=== PATIENT | female | born 1980 | race African-American/Black ===

== ENCOUNTER 2017-11-29 18:12 | Emergency (ER) | payer BC, OTHER ==
[2017-11-29] MEDS ORDERED: HYDROCODONE/ACETAMINOPHEN 5-325 MG TABLET PO ONE (19:00)
--- NOTE | 2017-11-29 19:02 | ER Document Report ---
ED Medical Screen (RME) - General Chief Complaint: Neck Pain >24hrs old Stated Complaint: HEAD PAIN Time Seen by Provider: 11/29/17 18:59 Mode of Arrival: Ambulatory Information source: Patient TRAVEL OUTSIDE OF THE [place] IN LAST 30 DAYS: No - HPI Patient complains to provider of: BARBOSA; neck stiffness Onset: Other - Pt. with c/o severe BARBOSA and neck stiffness for the past 3 days. - Related Data Allergies/Adverse Reactions: No Known Allergies Allergy (Verified 11/29/17 18:51) Past Medical History - Social History Chew tobacco use (# tins/day): No Frequency of alcohol use: None Drug Abuse: None Renal/ Medical History: Denies: Hx Peritoneal Dialysis Physical Exam - Vital signs Vitals: Temp Pulse Resp BP Pulse Ox 98.6 F 93 18 135/87 H 100 11/29/17 18:51 11/29/17 18:51 11/29/17 18:51 11/29/17 18:51 11/29/17 18:51 Course - Vital Signs Vital signs: Temp Pulse Resp BP Pulse Ox 98.6 F 93 18 135/87 H 100 11/29/17 18:51 11/29/17 18:51 11/29/17 18:51 11/29/17 18:51 11/29/17 18:51
[2017-11-29 20:09] LABS: APPEARANCE,URINE CLEAR; BILIRUBIN,URINE NEGATIVE (NEGATIVE); COLOR,URINE STRAW; GLUCOSE, URINE NEGATIVE (NEGATIVE); KETONES,URINE NEGATIVE (NEGATIVE); LEUKOCYTE ESTERASE,URINE NEGATIVE (NEGATIVE); NITRITE,URINE NEGATIVE (NEGATIVE); PROTEIN,URINE NEGATIVE (NEGATIVE); UROBILINOGEN,URINE NEGATIVE mg/dL (<2.0)
[2017-11-29 20:12] LABS: ABSOLUTE BASOPHILS # (AUTO) 0.1 10^3/uL (0.0-0.2); ABSOLUTE MONOCYTES (AUTO) 0.5 10^3/uL (0.1-1.4); ABSOLUTE NEUT (AUTO) 8.2 10^3/uL (1.7-8.2); BASOPHILS % (AUTO) 0.7 % (0-2); EOSINOPHILS % (AUTO) 0.4 % (0-6); HEMATOCRIT 37.8 % (36.0-47.0); HEMOGLOBIN 12.6 g/dL (12.0-15.5); MEAN CORPUSCULAR HEMOGLOBIN 28.4 pg (27.0-33.4); MEAN CORPUSCULAR HGB CONC 33.2 g/dL (32.0-36.0); MEAN CORPUSCULAR VOLUME 86 fl (80-97); MONOCYTES % (AUTO) 4.8 % (3-13); PLATELET COUNT 362 10^3/uL (150-450); RED BLOOD COUNT 4.42 10^6/uL (3.72-5.28); RED CELL DISTRIBUTION WIDTH 14.6 % (11.5-14.0); SEGMENTED NEUTROPHILS % (AUTO) 76.1 % (42-78); TOTAL CELLS COUNTED % (AUTO) 100 %; WHITE BLOOD COUNT 10.9 10^3/uL (4.0-10.5)
[2017-11-29 20:20] LABS: ALANINE AMINOTRANSFERASE 20 U/L (9-52); ALBUMIN 4.5 g/dL (3.5-5.0); ALKALINE PHOSPHATASE 53 U/L (38-126); ANION GAP 17 (5-19); ASPARTATE AMINO TRANSFERASE 12 U/L (14-36); BILIRUBIN,DIRECT 0.2 mg/dL (0.0-0.4); BILIRUBIN,TOTAL 0.2 mg/dL (0.2-1.3); BLOOD UREA NITROGEN 14 mg/dL (7-20); CALCIUM 9.5 mg/dL (8.4-10.2); CARBON DIOXIDE 27 mmol/L (22-30); CHLORIDE 97 mmol/L (98-107); GLUCOSE 134 mg/dL (75-110); POTASSIUM 3.8 mmol/L (3.6-5.0); SODIUM 140.7 mmol/L (137-145)
--- NOTE | 2017-11-29 21:26 | RADIOLOGY REPORT (SQ) ---
EXAM DESCRIPTION: CERV SP 4 OR 5 VIEWS COMPLETED DATE/TIME: 11/29/2017 9:01 pm REASON FOR STUDY: neck pain COMPARISON: None. NUMBER OF VIEWS: Five views. TECHNIQUE: AP, lateral, obliques and odontoid radiographic images acquired of the cervical spine. LIMITATIONS: None. FINDINGS: MINERALIZATION: Normal. ALIGNMENT: Anatomic. VERTEBRAE: Vertebral bodies of normal height. DISCS: No significant osteophytes or sclerosis. Disc height maintained. FORAMINA: No osteophytes or foraminal narrowing. LATERAL AND POSTERIOR ELEMENTS: Facets, lateral masses and spinous processes without significant find ings. HARDWARE: None in the spine. SOFT TISSUES: No masses or calcifications. Lung apices clear. OTHER: No other significant finding. IMPRESSION: No acute finding. TECHNICAL DOCUMENTATION: JOB ID: [id number] [id number] 2010 [employer]- All Rights Reserved Reading location - IP/workstation name: [employer]
--- NOTE | 2017-11-29 22:35 | ER Document Report ---
ED Headache - General Chief Complaint: Neck Pain >24hrs old Stated Complaint: HEAD PAIN Time Seen by Provider: 11/29/17 18:59 Mode of Arrival: Ambulatory Notes: Patient is a 36-year-old female comes emergency department for chief complaint of headache. She states that she feels tight in her neck and feels a bandlike headache across her forehead. She also reports light sensitivity. She denies nausea or vomiting, fever chills, injury. She states she has been worked up by primary care extensively including CAT scan and MRI over the past weeks since her headaches began, she states she was prescribed Imitrex but it does not seem to help. Only other reported past medical history is hypertension and she was previously treated for trigeminal neuralgia but she denies pain in the same location of the right side of the face or that the symptoms are the same. TRAVEL OUTSIDE OF THE [place] IN LAST 30 DAYS: No - Related Data Allergies/Adverse Reactions: No Known Allergies Allergy (Verified 11/29/17 18:51) Past Medical History - General Information source: Patient - Social History Smoking Status: Never Smoker Chew tobacco use (# tins/day): No Frequency of alcohol use: None Drug Abuse: None Lives with: Family Family History: Reviewed & Not Pertinent Patient has suicidal ideation: No Patient has homicidal ideation: No - Past Medical History Cardiac Medical History: Reports: Hx Hypertension Renal/ Medical History: Denies: Hx Peritoneal Dialysis Surgical Hx: Negative - Immunizations Immunizations up to date: Yes Hx Diphtheria, Pertussis, Tetanus Vaccination: Yes Review of Systems - Review of Systems Constitutional: No symptoms reported EENT: No symptoms reported Cardiovascular: No symptoms reported Respiratory: No symptoms reported Gastrointestinal: No symptoms reported Genitourinary: No symptoms reported Female Genitourinary: No symptoms reported Musculoskeletal: See HPI Skin: No symptoms reported Hematologic/Lymphatic: No symptoms reported Neurological/Psychological: See HPI Physical Exam - Vital signs Vitals: Temp Pulse Resp BP Pulse Ox 98.7 F 96 18 142/84 H 99 11/29/17 18:29 11/29/17 18:29 11/29/17 18:29 11/29/17 18:29 11/29/17 18:29 Interpretation: Normal - General General appearance: Appears well In distress: None - Patient sitting up, well-appearing, has no signs of distress - HEENT Head: Normocephalic, Atraumatic Eyes: Normal Conjunctiva: Normal Extraocular movements intact: Yes Eyelashes: Normal Pupils: PERRL Pharynx: Normal Neck: Normal. No: Meningismus - Respiratory Respiratory status: No respiratory distress Chest status: Nontender Breath sounds: Normal Chest palpation: Normal - Cardiovascular Rhythm: Regular Heart sounds: Normal auscultation Murmur: No - Abdominal Inspection: Normal Distension: No distension Bowel sounds: Normal Tenderness: Nontender Organomegaly: No organomegaly - Back Back: Normal, Tender - Tender in paraspinal cervical muscles and trapezius muscles, no midline tenderness, no saddle anesthesia, normal upper and lower extremity range of motion, strength, distal neurovascular exam.. No: Vertebra tenderness - Extremities General upper extremity: Normal inspection, Nontender, Normal color, Normal ROM , Normal temperature General lower extremity: Normal inspection, Nontender, Normal color, Normal ROM , Normal temperature, Normal weight bearing. No: Eber's sign - Neurological Neuro grossly intact: Yes Cognition: Normal Orientation: AAOx4 [place] Coma Scale Eye Opening: Spontaneous [place] Coma Scale Verbal: Oriented [place] Coma Scale Motor: Obeys Commands May[place] Coma Scale Total: 15 Speech: Normal Motor strength normal: LUE, RUE, LLE, RLE Sensory: Normal - Psychological Associated symptoms: Normal affect, Normal mood - Skin Skin Temperature: Warm Skin Moisture: Dry Skin Color: Normal Course - Re-evaluation Re-evalutation: Patient was reported symptoms ongoing for a long time, has tender paraspinal cervical muscles and trapezius muscles bilaterally which suggest a tension component. 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 Having almost daily headaches. Has had full workup by neurology including MRI. No fever, injury, or significant change in headache. Reviewed workup performed in triage including cervical spine x-ray which is normal, laboratory workup which is unremarkable. Discussed with patient. She states she drove here, she requests medication to go but does not want treatment here for her headache or neck. Very low suspicion of subarachnoid hemorrhage, venous sinus thrombosis, meningitis, or vertebral dissection based on timeframe, normal appearance of patient, and my unremarkable examination. Discussed treatment, provided medications, discussed follow-up and return precautions, patient states satisfaction and agreement. - Vital Signs Vital signs: Temp Pulse Resp BP Pulse Ox 98.4 F 76 18 127/80 H 100 11/29/17 22:57 11/29/17 22:57 11/29/17 18:51 11/29/17 22:57 11/29/17 22:57 - Laboratory Result Diagrams: 11/29/17 19:45 11/29/17 19:45 Laboratory results interpreted by me: 11/29/17 11/29/17 19:45 19:45 WBC 10.9 H RDW 14.6 H Chloride 97 L Glucose 134 H AST 12 L Discharge - Discharge Clinical Impression: Neck pain Headache Qualifiers: Headache type: unspecified Headache chronicity pattern: acute headache Intractability: not intractable Qualified Code(s): R51 - Headache Condition: Stable Disposition: HOME, SELF-CARE Additional Instructions: Your x-ray of the neck does not show any abnormality, your workup does not show any concerning abnormalities. Your examination is consistent with muscle pain and spasm in the paracervical and trapezius muscles, as result take Valium as prescribed, apply heat, do gentle stretches. This should improve with time. You can take the Fioricet medication for tension type headaches which I suspect are triggering migraines. Please follow-up additionally with your provider for more management. Return for any concerning or worsening symptoms including severe worsening headache, vomiting, temperature 100.4 or greater, numbness, or any other concerning symptoms. Prescriptions: Butalb/Acetaminophen/Caffeine [Fioricet (50-325-40 mg) Tablet] 1 tab PO Q4HP PRN #30 tab PRN Reason: Diazepam [Valium 5 mg Tablet] 1 - 2 tab PO TID PRN #15 tablet PRN Reason: Forms: Return to Work
[2017-11-29] MEDS ORDERED: DIAZEPAM INJ 10 MG/2 ML DISP.SYRIN IM ONE (22:52)
[2017-11-29 23:04] VITALS: BP 127/80
== END 2017-11-29 23:04 | disposition home or self-care (01) ==
LOC: ER 18:12
DX: R51 Headache (principal); M54.2 Cervicalgia; H53.149 Visual discomfort, unspecified; I10 Essential (primary) hypertension; Z86.69 Personal history of other diseases of the nervous system and sense organs
CPT/HCPCS: 36415; 72050; 80053; 81001; 81025; 85025; 99284